=== PATIENT | female | born 2000 | race Caucasian/White ===

== ENCOUNTER 2023-04-02 13:38 | Outpatient (CLI) | payer OTHER | END 2023-04-02 13:39 | disposition home or self-care (01) | LOC: CSHLAB 13:38 | PROVIDERS: ATTEND Obstetrics & Gynecology | DX: Z01.812 Encounter for preprocedural laboratory examination (principal); R10.2 Pelvic and perineal pain; Z53.9 Procedure and treatment not carried out, unspecified reason | CPT/HCPCS: 84703; 85027; 86850; 86900; 86901 ==

== ENCOUNTER 2023-04-03 09:59 | Day surgery (SDC) | payer OTHER ==
[2023-04-02 11:48] VITALS: BMI 26.5
[2023-04-02 14:53] LABS: Hematocrit 39.1 % (34.9-44.5); Hemoglobin 13.4 g/dL (12.0-15.5); Mean Corpuscular HGB CONC 34.3 g/dL (32.0-36.0); Mean Corpuscular Hemoglobin 30.2 pg (27.0-33.0); Mean Corpuscular Volume 88.3 fl (81.6-98.3); Platelet Count 297 10x3/uL (150-450); Red Blood Cell (RBC) Count 4.43 10x6/uL (3.90-5.03); White Blood Cell (WBC) Count 7.1 10x3/uL (3.5-10.5)
[2023-04-02 15:02] LABS: BHCG - Serum Negative (NEGATIVE); Pregs Control Background? CLEAR/WHITE (CLR/WHITE); Pregs Control Bar Appear? YES (CONTROL BAR)
[2023-04-03] MEDS ORDERED: CeleCOXIB 100 MG CAP ONE (10:05)
[2023-04-03] MEDS ORDERED: Famotidine/PF 20 mg/2ml Vial ONE (10:06)
[2023-04-03] MEDS ORDERED: Gabapentin 300 MG CAP ONE (10:06)
[2023-04-03] MEDS ORDERED: Bupivacaine PF 0.5% 30 ML VIAL ONE (11:53)
[2023-04-03] MEDS ORDERED: EPINEPHrine 1 MG/ML VIAL ONE (11:53)
[2023-04-03] MEDS ORDERED: CEFAZOLIN 2 GM VIAL ONE (11:56)
[2023-04-03] MEDS ORDERED: fentaNYL 50 mcg/mL 1 mL Vial ONE (12:08)
[2023-04-03] MEDS ORDERED: PROPOFOL 20 ML ONE (12:08)
[2023-04-03] MEDS ORDERED: Rocuronium Bromide 10 MG/ML (10ML VIAL) ONE (12:08)
[2023-04-03] MEDS ORDERED: SUGAMMADEX SODIUM 200 MG/2 ML VIAL ONE (12:55)
[2023-04-03] MEDS ORDERED: HYDROcodone/Acetaminophen 5/325 mg Tablet ONE (14:21)
== END 2023-04-03 15:25 | disposition home or self-care (01) ==
LOC: CSHSDC 09:59
PROVIDERS: ATTEND Obstetrics & Gynecology
PROC: 0UB04ZZ Excision of Right Ovary, Percutaneous Endoscopic Approach (ICD-10-PCS; principal; 2023-04-03)
DX: N80.121 Deep endometriosis of right ovary (principal); N83.201 Unspecified ovarian cyst, right side; J45.909 Unspecified asthma, uncomplicated; Z98.51 Tubal ligation status; Z79.899 Other long term (current) drug therapy
CPT/HCPCS: 36415; 84703; 85027; 86850; 86900; 86901; 88307; C1889; J0171; J2704; J3010; S0020; S0028